=== PATIENT | male | born 1965 | race Caucasian/White ===

== ENCOUNTER → 2021-07-15 13:16 | Outpatient (CLI) | payer OTHER, SELFPAY ==
--- NOTE | 2021-07-15 13:19 | DI.RAD.S_ITS ---
PROCEDURE: XR THORACIC SPINE 3V INDICATIONS: Upper R sided back pain TECHNIQUE: 3 views of the thoracic spine were acquired. COMPARISON: None. FINDINGS: Bones: No fractures or dislocations. No suspicious bony lesions. 12 pairs of ribs are noted, and appear intact where visualized. Age-appropriate degenerative changes are seen, which are worst inferiorly. Soft tissues: No paravertebral stripe thickening. IMPRESSION: Unremarkable thoracic plain films for age, with note made of age-appropriate degenerative change. Dictated by: Thiago Gonzalez M.D. on 07/15/2021 at 13:01 Approved by: Thiago Gonzalez M.D. on 07/15/2021 at 13:02
== END ==
PROVIDERS: Referring Provider Nurse Practitioner; Visit Provider Nurse Practitioner
DX: M54.9 Dorsalgia, unspecified (principal)
CPT/HCPCS: 72072